=== PATIENT | female | born 1950 | race Caucasian/White ===

== ENCOUNTER 2016-11-09 10:50 | Inpatient (IN) | payer OTHER ==
[2016-10-27 20:34] LABS: BASOPHILS 0.4 %; BASOPHILS ABSOLUTE 0.03 10/3/uL (0.0-0.16); EOSINOPHILS 2.8 %; EOSINOPHILS ABSOLUTE 0.21 10/3/uL (0.0-0.53); IMMATURE GRANULOCYTES 0.1 %; IMMATURE GRANULOCYTES ABSOLUTE 0.01 10/3/uL (0.0-0.11); LYMPHOCYTES ABSOLUTE 2.33 10/3/uL (0.67-4.30); MEAN CORPUS HGB CONC 33.2 g/dL (32.0-36.0); MEAN CORPUSCULAR HEMOGLOB 29.7 pg (26.0-34.0); MEAN PLATELET VOLUME 10.5 fL (9.2-13.0); MONOCYTES 8.1 %; MONOCYTES ABSOLUTE 0.61 10/3/uL (0.21-1.20); NEUTROPHILS 57.6 %; NEUTROPHILS ABSOLUTE 4.33 10/3/uL (2.02-8.40); PLATELET COUNT 418 10/3/uL (150-400); RBC DISTRIBUTION WIDTH 14.8 % (12.0-16.0); RED CELL COUNT 3.81 10/6/uL (4.0-5.6); WHITE BLOOD CELLS 7.5 10/3/uL (4.5-10.5)
[2016-10-27 20:36] LABS: HEMOGLOBIN 11.3 g/dL (12.0-16.0); MANUAL DIFF NO %; MEAN CORPUSCULAR VOLUME 89.2 fL (80-100)
[2016-10-27 20:42] LABS: PROTIME (NOT ORD) 13.5 SEC (12.0-14.5)
[2016-10-27 20:55] LABS: ALBUMIN 3.8 G/DL (3.5-5.0); CALCIUM, SERUM 8.9 MG/DL (8.5-10.4); CHLORIDE, SERUM 104 MMOL/L (96-112); CO2 (CARBON DIOXIDE) 25 MMOL/L (24-34); CREATININE 0.76 MG/DL (0.55-1.02); GFR AFRICAN AMERICAN 95 ML/MIN (>=60); GFR NON AFRICAN AMERICAN 82 ML/MIN (>=60); POTASSIUM, SERUM 4.1 MMOL/L (3.5-5.3); SGOT(AST) 19 U/L (5-40); SGPT(ALT) 13 U/L (5-65); TOTAL BILIRUBIN 0.3 MG/DL (0-1.2); TOTAL PROTEIN 7.2 G/DL (6.0-8.5)
[2016-10-27 20:56] LABS: A/G RATIO 1.1 (0.7-1.9); ALKALINE PHOSPHATASE 171 U/L (45-117); BUN (BLOOD UREA NITROGEN) 20 MG/DL (6-23); GLOBULIN 3.4 G/DL (2.5-4.1); GLUCOSE, SERUM 93 MG/DL (60-99); SODIUM, SERUM 141 MMOL/L (135-148)
[2016-10-27 21:33] LABS: ASCORBIC ACID (UR NOT ORDER) NEG (NEG); BILIRUBIN, URINE NEGATIVE (NEG); KETONE, URINE NEGATIVE (NEG); LEUKOCYTE ESTERASE(NOT OR NEG (NEG); WBC (NOT ORDERED) (RFLEX) 3 (0-5)
--- NOTE | ~2016-11-09 | OP ---
Record Of Operation [facility] [address] [place]. 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 PROCEDURE: Left total knee revision arthroplasty. SURGEON: Elmer Connelly M.D. DIRECTOR GROUP SALES: See chart. DESCRIPTION OF PROCEDURE: The patient was taken to the operating room and placed supine on the table in normal fashion without incident. General anesthetic was induced per the anesthesiologist. The patient was carefully positioned, padded, prepped, and draped in normal sterile fashion. Left lower extremity exsanguinated, tourniquet inflated to 350. Sharp dissection was made through the old curvilinear anterior scar anteriorly extending somewhat distally for a few centimeter. Electrocautery was used through the fat. A medial arthrotomy was made and benign appearing fluid was sent for cultures and Gram stain. Abundant synovectomy was performed. The knee was grossly unstable hyperextending with severe medial lateral imbalance. The tibial insert was removed. The femoral and tibial components were easily removed, flexible osteotome. Sequential reamers were used to an 18 in the femur and tibia intramedullary guides used to cut the proximal tibia and distal femur. The remaining cement was meticulously debrided. The remaining cuts were made on the femur after determining with the ruler, the flexion and extension balance. With trial components in place, there was excellent medial and lateral balance. The patella was cut off with an oscillating saw. It was significantly malpositioned superiorly and somewhat medially. It was redrilled with the patellar drill guide. Now, there was an excellent patellar tracking. There was abundant arthrofibrotic tissue throughout the knee that was meticulously debrided with electrocautery and rongeur. All surfaces were copiously irrigated with pulsatile lavage. Vacuum-mixed cement was pressurized in a doughy phase in the tibia. Tibial component placed, impacted, and excess cement removed. Cement was pressurized in the femur and placed on the posterior runners of the femoral component which was placed, impacted, and excess cement removed. Knee brought out in extension on a trial spacer. Cement was pressurized in the patella. Patellar component placed, held with a clamp, and excess cement removed. Once all cement was hardened, the knee was taken through range of motion. Further extruded cement was removed with a small osteotome after multiple insert trials. Actual insert was then placed and impacted after copiously irrigating the hip. It was checked to make sure it was down snug. There was excellent medial and lateral balance and excellent flexion and extension balance with excellent patellar tracking. All surfaces were then copiously irrigated. Again, the wound closed in a layered fashion over medium ConstaVac drain superolaterally. The wound was dressed sterilely. The patient was awakened and taken to the Postanesthesia Care Unit without incident. COMPLICATIONS: None. Record Of Operation [address] [address] NAME: OLEG VILLAFUERTE : 50 STATUS : ADM IN [facility]#: [id number] AGE: 66 ADM/REG DATE : 11/09/16 MR#: [id number] REPORT SERV DATE: 11/10/16 DICTATED BY: PAOLA CONNELLY DATE: 11/09/16 REPORT STATUS : Draft TRANSCRIBED BY: MATTHEW DATE: 11/09/16 SPECIMENS REMOVED: Include; components and cultures. ESTIMATED BLOOD LOSS: Trace. WTB/MARYAML Elmer Connelly M.D. / [id number] CC: Elmer Connelly M.D.
[~2016-11-09 10:50] MED LIST: ATV1 PO; AVINZA30 PO; BENADRYL 50 MG50 MG PO; C5; CYANO1000T PO; CYMBALTA60 PO; DITRO5 PO; HYDROCHLOROT12.5 MG PO; LISINOPRIL40 MG PO; MAGNESIUM PO; MIRALAXPKT PO; MSCONTIN PO; MSIMMR15 PO; MULTI-VIT HP PO; NEUR800 PO; NORV5 PO; PCET PO; PRILO PO; PROZAC40 MG PO; SENSIPAR30 MG OR; VESICARE5 PO; VITAMIN D31000 UNIT PO; ZANAFLEX 4 MG TA4 MG PO; ZANAFLEX2 MG PO
[2016-11-10 05:29] LABS: HEMOGLOBIN 9.1 g/dL (12.0-16.0)
[2016-11-10 05:31] LABS: HEMATOCRIT 27.8 % (36.0-48.0)
[2016-11-10 05:36] LABS: INTERNATIONAL NORMAL RATI 1.3 UNITS (-)
[2016-11-10 05:38] LABS: PROTIME (NOT ORD) 15.6 SEC (12.0-14.5)
[2016-11-10 05:42] LABS: CALCIUM, SERUM 8.4 MG/DL (8.5-10.4); CHLORIDE, SERUM 103 MMOL/L (96-112); CREATININE 0.72 MG/DL (0.55-1.02); GFR AFRICAN AMERICAN 101 ML/MIN (>=60); GFR NON AFRICAN AMERICAN 87 ML/MIN (>=60); POTASSIUM, SERUM 3.7 MMOL/L (3.5-5.3); SODIUM, SERUM 141 MMOL/L (135-148)
[2016-11-10 05:44] LABS: BUN (BLOOD UREA NITROGEN) 15 MG/DL (6-23); CO2 (CARBON DIOXIDE) 30 MMOL/L (24-34); GLUCOSE, SERUM 118 MG/DL (60-99)
[2016-11-11 04:53] LABS: HEMOGLOBIN 8.6 g/dL (12.0-16.0)
[2016-11-11 04:54] LABS: HEMATOCRIT 24.8 % (36.0-48.0)
[2016-11-11 05:09] LABS: PROTIME (NOT ORD) 22.3 SEC (12.0-14.5)
[2016-11-11] MEDS ORDERED: NORCO1 TA2 PO (12:16)
[2016-11-11] MEDS ORDERED: C2 (12:16)
== END 2016-11-11 13:59 | disposition home health service (06) | DRG 468 ==
LOC: SDC/OF 10:50 → PACU 16:39 → 3JRC 17:19
PROVIDERS: Specialist
PROC: 3E0T3CZ (ICD-10-PCS; 2016-11-09)
PROC: 0SWD0JZ Revision of Synthetic Substitute in Left Knee Joint, Open Approach (ICD-10-PCS; principal; 2016-11-09 12:45)
DX: T84.093A Other mechanical complication of internal left knee prosthesis, initial encounter (principal); E87.70 Fluid overload, unspecified; I10 Essential (primary) hypertension; Z87.442 Personal history of urinary calculi; Z98.890 Other specified postprocedural states; Z90.49 Acquired absence of other specified parts of digestive tract; Z98.84 Bariatric surgery status; F32.9 Major depressive disorder, single episode, unspecified; F41.9 Anxiety disorder, unspecified; K21.9 Gastro-esophageal reflux disease without esophagitis; G89.29 Other chronic pain; Z86.718 Personal history of other venous thrombosis and embolism; Z79.899 Other long term (current) drug therapy; Z91.041 Radiographic dye allergy status
CPT/HCPCS: 36415; 71020-PO; 80048; 80053; 81001; 85014; 85018; 85025; 85610; 86850; 86900; 86901; 87015; 87070; 87075; 87102; 87116; 87205; 87641; 88300; 88304; 88305; 88311; 93005; 97150-GP; 97161-GP; 97165-GO; 97535-GO; A9270-GY; C1776; J0690; J1885; J2250; J2274; J2405; J2795; J3010